=== PATIENT | male | born 1965 ===

== ENCOUNTER 2022-08-21 11:23 | Emergency (ER) | payer SELFPAY ==
[2022-08-21] MEDS ORDERED: Boostrix 0.5 ML (Tdap) VIAL (>/=7 yrs of age) ONE (11:31)
[2022-08-21] MEDS ORDERED: Morphine 4 MG/ML VIAL ONE (11:31)
[2022-08-21] MEDS ORDERED: CEFAZOLIN 2 GM VIAL ONE (11:31)
[2022-08-21 12:46] LABS: Hemoglobin 15.8 g/dL (14.0-18.0); Mean Corpuscular HGB CONC 32.3 g/dL (32.0-36.0); Mean Corpuscular Hemoglobin 29.7 pg (27.0-31.0); Mean Platelet Volume 7.8 fL (7.4-10.4); Platelet Count 260 10x3/uL (130-400); RBC Distribution Width 11.8 % (11.5-14.5); Red Blood Cell (RBC) Count 5.33 mill/uL (4.70-6.10); White Blood Cell (WBC) Count 20.4 10x3/uL (4.8-10.8)
[2022-08-21 13:08] LABS: Band 20 % (5-11); Lymphocytes 8 % (21-51); MDiff Complete? YES; Monocytes 1 % (0-10); Neutrophil 69 % (42-75); RBC Morphology Normal; Reactive Lymphocytes 2 % (0-10)
[2022-08-21 13:10] LABS: ALT (SGPT) 43 U/L (8-55); AST (SGOT) 30 U/L (5-34); Albumin 3.7 g/dL (3.5-5.0); Alkaline Phosphatase 79 U/L (40-110); Anion Gap 14 mmol/L (10-20); BUN (Urea Nitrogen) 16 mg/dL (8.4-25.7); Bilirubin, Total 0.9 mg/dL (0.2-1.2); Calc. Creatinine Clearance 0 mL/min (70-130); Calcium 8.6 mg/dL (7.8-10.44); Carbon Dioxide 23 mmol/L (22-29); Chloride 102 mmol/L (98-107); Estimated GFR 88; Globulin 3.3 g/dL (2.4-3.5); Glucose 171 mg/dL (70-105); Potassium 3.7 mmol/L (3.5-5.1); Sodium 135 mmol/L (136-145)
== END 2022-08-21 13:36 | disposition short-term general hospital (02) ==
LOC: ERS 11:23
DX: T21.21XA Burn of second degree of chest wall, initial encounter (principal); T24.311A Burn of third degree of right thigh, initial encounter; X04.XXXA Exposure to ignition of highly flammable material, initial encounter; Z23 Encounter for immunization
CPT/HCPCS: 80053; 85025; 90471; 90715; 96365; 96375; 99292; G0390; J2270